=== PATIENT | female | born 1970 | race Two or more races ===

== ENCOUNTER 2017-01-09 21:00 | Emergency (ER) | payer SELFPAY ==
[~2017-01-09] VITALS: Ht 170.2 cm; Wt 127.5 kg
--- NOTE | ~2017-01-09 | CR126 ---
[facility]. [facility] A Service of [facility] & [facility] RADIOLOGY TEXT RESULTS PATIENT: REBECCA HERNANDEZ LOCATION: SED : 70 UNIT #: [id number] AGE: [address]: Sebastián Thompson MD SEX: F ORDER DR: [id number] [place] [id number] MR#: [id number] Acc #: [id number] NAME: REBECCA HERNANDEZ : 1970 SEX: F STUDY DATE/TIME: 01/09/2017 21:59 UNIT: SED ROOM: STUDY DESCRIPTION: CR Foot Complete Min 3 View Lt Attending Physician: Sebastián Thompson M.D. Ordering Physician: Sebastián Thompson M.D. Primary Care Physician: Primary Care Physician No MEDICAL IMAGING REPORT This report is preliminary unless electronic signature is present. EXAM Left foot series INDICATION Left foot pain after injury this morning. PROCEDURE 3 views of the left foot. COMPARISON None FINDINGS No acute fracture or dislocation. IMPRESSION No acute findings. Dictated by... Brennen Mccullough M.D. THIS IS AN ELECTRONICALLY VERIFIED REPORT Brennen Mccullough M.D. at 01/10/2017 10:00 PM Yobany TD: 01/10/2017 08:37 JOB #: [id number] MEDICAL IMAGING REPORT Page 1 of 1
--- NOTE | ~2017-01-09 | CR20 ---
[facility]. [facility] A Service of [facility] & [facility] RADIOLOGY TEXT RESULTS PATIENT: REBECCA HERNANDEZ LOCATION: SED : 70 UNIT #: [id number] AGE: [address]: Sebastián Thompson MD SEX: F ORDER DR: [id number] [place] [id number] MR#: [id number] Acc #: [id number] NAME: REBECCA HERNANDEZ : 1970 SEX: F STUDY DATE/TIME: 01/09/2017 21:59 UNIT: SED ROOM: STUDY DESCRIPTION: CR Ankle Min 3 Views Lt Attending Physician: Sebastián Thompson M.D. Ordering Physician: Sebastián Thompson M.D. Primary Care Physician: Primary Care Physician No MEDICAL IMAGING REPORT This report is preliminary unless electronic signature is present. EXAM Left ankle series INDICATION Left foot and ankle pain after injury this morning. PROCEDURE 3 views of the left ankle. FINDINGS No fracture or dislocation. Generalized soft tissue swelling. IMPRESSION Generalized soft tissue swelling. No acute bone injury. Dictated by... Brennen Mccullough M.D. THIS IS AN ELECTRONICALLY VERIFIED REPORT Brennen Mccullough M.D. at 01/10/2017 10:00 PM Yobany TD: 01/10/2017 08:37 JOB #: [id number] MEDICAL IMAGING REPORT Page 1 of 1
[~2017-01-09 21:00] MED LIST: NO MEDICATIONS
== END 2017-01-09 23:09 | disposition home or self-care (01) ==
LOC: SED 21:00
DX: S93.422A Sprain of deltoid ligament of left ankle, initial encounter (principal); X58.XXXA Exposure to other specified factors, initial encounter
CPT/HCPCS: 29540; 73610; 73630; 99283